=== PATIENT | male | born 1960 | race Caucasian/White ===

== ENCOUNTER → 2018-02-02 | Outpatient (REF) | payer BC ==
[2018-02-02 14:15] LABS: PHENYTOIN (DILANTIN) < 0.4 UG/ML (10.0-20.0)
== END ==
LOC: M LABNEURO 10:56
DX: G40.909 Epilepsy, unspecified, not intractable, without status epilepticus (principal)
CPT/HCPCS: 80185

== ENCOUNTER → 2018-03-09 | Outpatient (REF) | payer BC ==
[2018-03-12 15:01] LABS: LEVETIRACETAM (KEPPRA) 14.2 ug/mL (10.0-40.0)
== END ==
LOC: M LABNEURO 13:01
DX: R56.9 Unspecified convulsions (principal)
CPT/HCPCS: 36415